=== PATIENT | male | born 1985 | race Caucasian/White ===

== ENCOUNTER 2017-09-10 10:35 | Day surgery (SDC) | payer BC ==
[~2017-09-10 10:35] MED LIST: SOD CHLORIDE 0.9% 1,000 ML IV
[2017-09-10] MEDS: GENTAMICIN 80 MG INJ (12:30)
[2017-09-10] MEDS: POLYMYXIN/BACITRACIN 1L IRRIG (12:30)
[2017-09-10] MEDS ORDERED: PROPOFOL 20 ML (13:15)
[2017-09-10] MEDS ORDERED: ROCURONIUM 50 MG INJ (13:15)
[2017-09-10] MEDS ORDERED: GLYCOPYRROLATE 0.4 MG INJ (13:15)
[2017-09-10] MEDS ORDERED: NEOSTIGMINE 3 MG/3 ML SYRINGE (13:15)
[2017-09-10] MEDS ORDERED: CEFAZOLIN 1 GM INJ (13:15)
[2017-09-10] MEDS ORDERED: ONDANSETRON 4 MG INJ (13:17)
[2017-09-10] MEDS ORDERED: DEXAMETHASONE 4 MG/ML 1 ML INJ (13:17)
[2017-09-10] MEDS ORDERED: MIDAZOLAM 1 MG/ML 2 ML INJ (13:17)
[2017-09-10] MEDS ORDERED: FENTAnyl 50 MCG/ML VIAL ×2 (13:17→13:47)
[2017-09-10] MEDS ORDERED: ONDANSETRON 4 MG INJ IV ×2 (13:30→14:00)
[2017-09-10] MEDS ORDERED: morphine 2 MG INJ IV (13:30)
[2017-09-10] MEDS ORDERED: OXYCODONE/ACETAMINOPHEN (5/325) TAB PO ×5 (13:30→14:00)
[2017-09-10] MEDS ORDERED: FENTAnyl 50 MCG/ML VIAL IV ×6 (14:00)
[2017-09-10] MEDS ORDERED: LABETALOL HCL 20MG INJ IV ×2 (14:00)
[2017-09-10] MEDS ORDERED: MEPERIDINE 25 MG INJ IV ×2 (14:00)
[2017-09-10] MEDS ORDERED: hydrALAzine 20 MG INJ IV ×2 (14:00)
[2017-09-10] MEDS ORDERED: IPRATROPIUM (NEB) 0.5 MG/2.5 ML AMP HHN ×2 (14:00)
[2017-09-10] MEDS ORDERED: HYDROmorphONE (0.2 MG/ML) 10ML SYG IV ×6 (14:00)
[2017-09-10] MEDS ORDERED: ALBUTEROL 0.083% (NEB) 2.5 MG/3 ML AMP HHN ×2 (14:00)
[2017-09-10] MEDS ORDERED: TRIMETHOBENZAMIDE 100 MG/ML VIAL IM ×2 (14:00)
[2017-09-10] MEDS ORDERED: MIDAZOLAM 1 MG/ML 2 ML INJ IV ×2 (14:00)
[2017-09-10] MEDS ORDERED: EPHEDrine SULFATE 50 MG/5 ML SYG IV ×2 (14:00)
[2017-09-10] MEDS ORDERED: DIPHENHYDRAMINE 50 MG INJ IV ×2 (14:00)
[2017-09-10] MEDS: BUPIVACAINE 0.25%/EPI (SDV) 30 ML INJ (14:30)
[2017-09-10] MEDS: BUPIVACAINE LIPOSOME/PF 266 MG/20 ML VIAL INFIL (14:30)
[2017-09-10] MEDS: SODIUM CL BACTERIOSTATIC 30 ML INJ (14:30)
[2017-09-10] MEDS: ONDANSETRON 4 MG INJ IV (15:00)
== END 2017-09-12 09:57 | disposition home or self-care (01) ==
LOC: SDS 09-12 09:57
DX: N62 Hypertrophy of breast (principal)
CPT/HCPCS: 19300; 88305